=== PATIENT | male | born 1995 | race Caucasian/White ===

== ENCOUNTER 2016-09-06 23:30 | Emergency (ER) | payer SELFPAY ==
[~2016-09-06] VITALS: Ht 170.2 cm; Wt 95.0 kg
[2016-09-07] MEDS ORDERED: SODIUM CHLORIDE 0.9% 1,000ML IVBOLUS ONE
[2016-09-07] MEDS ORDERED: SODIUM CHLORIDE FLUSH 10ML SYR IVF ONE
[2016-09-07] MEDS ORDERED: ONDANSETRON 2MG/ML, 2ML IVPush ONE
[2016-09-07] MEDS ORDERED: ONDANSETRON 2MG/ML, 2ML ONE (00:04)
[2016-09-07 00:19] LABS: HEMOGLOBIN 14.6 g/dL (13.7-18.0)
[2016-09-07 00:28] LABS: BLOOD UREA NITROGEN 12 mg/dL (7-18)
[2016-09-07 00:32] LABS: ASPARTATE AMINO TRANSFERASE 15 U/L (15-37)
[2016-09-07] MEDS ORDERED: POTASSIUM CHLORIDE 20 MEQ TAB.ER.PRT ONE (00:53)
[2016-09-07] MEDS ORDERED: POTASSIUM CHLORIDE 20 MEQ TAB.ER.PRT PO ONE (01:00)
[2016-09-07 03:28] VITALS: BP 102/55
== END 2016-09-07 03:29 | disposition home or self-care (01) ==
LOC: ED 23:59
DX: R11.2 Nausea with vomiting, unspecified (principal); F12.10 Cannabis abuse, uncomplicated; E87.6 Hypokalemia
CPT/HCPCS: 36415; 80053; 85025; 93005; 96361; 96374; 99285; J2405; J7030

== ENCOUNTER 2018-08-26 19:31 | Emergency (ER) | payer SELFPAY ==
[~2018-08-26] VITALS: Ht 172.7 cm; Wt 107.0 kg
[2018-08-26 19:39] VITALS: BP 171/89
[2018-08-26] MEDS ORDERED: DIPHENHYDRAMINE 50 MG/ML, 1ML IM ONE (21:00)
[2018-08-26] MEDS ORDERED: METOCLOPRAMIDE 5 MG/ML, 2ML IM ONE (21:00)
[2018-08-26] MEDS ORDERED: DIPHENHYDRAMINE 50 MG/ML, 1ML ONE (21:23)
[2018-08-26] MEDS ORDERED: METOCLOPRAMIDE 5 MG/ML, 2ML ONE (21:23)
--- NOTE | 2018-08-26 21:27 | NUR ---
PT BACK FRM CT SCAN AND MEDICATED ORDERED
== END 2018-08-26 22:02 | disposition home or self-care (01) ==
LOC: ED 21:56
DX: R51 Headache (principal); Z72.9 Problem related to lifestyle, unspecified
CPT/HCPCS: 70450; 96372; 99284; J1200; J2765

== ENCOUNTER 2019-10-30 20:24 | Emergency (ER) | payer OTHER ==
[~2019-10-30] VITALS: Ht 175.3 cm; Wt 105.0 kg
--- NOTE | 2019-10-30 20:50 | NUR ---
PT RESTING ON GURNEY, MONITORS APPLIED, PROVIDED PT WITH BLANKET, SIDERAILS UP X2, CALL LIGHT WITHIN REACH. AWAITING ERP FOR EVAL AND ORDERS
[2019-10-30] MEDS ORDERED: ONDANSETRON 2MG/ML, 2ML IVPush ONE (21:30)
[2019-10-30] MEDS ORDERED: MORPHINE SULFATE 4 MG/ML, 1ML IVPush PRN (21:30)
--- NOTE | 2019-10-30 21:31 | NUR ---
PT TO ULTRASOUND
[2019-10-30 21:34] LABS: BASOPHILS # (AUTO) 0.07 x10^3/uL (0-0.1); BASOPHILS % (AUTO) 1 % (0-1); EOSINOPHILS # (AUTO) 0.02 x10^3/uL (0-0.4); EOSINOPHILS % (AUTO) 0 % (1-7); LYMPHOCYTES # (AUTO) 1.36 x10^3/uL (1-3.4); LYMPHOCYTES % (AUTO) 9 % (22-44); MD NO; MEAN CORPUSCULAR HGB CONC 33.2 g/dL (33.2-36.2); MEAN CORPUSCULAR VOLUME 87.2 fL (81-97); MONOCYTES # (AUTO) 0.47 x10^3/uL (0.2-0.8); MONOCYTES % (AUTO) 3 % (2-9); NEUTROPHILS # (AUTO) 12.55 x10^3/uL (1.8-6.8); NEUTROPHILS % (AUTO) 87 % (42-75); PLATELET COUNT 229 x10^3/uL (130-400); RED BLOOD COUNT 5.29 x10^6/uL (4.38-5.82); RED CELL DISTRIBUTION WIDTH 12.6 % (9.4-14.8)
[2019-10-30] MEDS ORDERED: ONDANSETRON 2MG/ML, 2ML ONE (21:36)
[2019-10-30] MEDS ORDERED: MORPHINE SULFATE 4 MG/ML, 1ML ONE (21:36)
[2019-10-30 21:42] LABS: ALBUMIN 4.3 g/dL (3.4-5.0); ANION GAP 7 mmol/L (5-15); CALCIUM 9.2 mg/dL (8.5-10.1); CHLORIDE 109 mmol/L (98-107)
--- NOTE | 2019-10-30 21:42 | NUR ---
pt up to rr with steady gait, provided pt with urine cup for sample
[2019-10-30 21:45] LABS: ALANINE AMINOTRANSFERASE 68 U/L (12-78); ALKALINE PHOSPHATASE 108 U/L (45-117); BILIRUBIN,TOTAL 0.8 mg/dL (0.2-1.0); CREATININE 1.06 mg/dL (0.7-1.3)
[2019-10-30 21:50] VITALS: BP 149/66
--- NOTE | 2019-10-30 21:50 | NUR ---
IV SITE STARTED, PT MEDICATED PER AUG. URINE SAMPLE SENT TO LAB
[2019-10-30 22:05] LABS: MICROSCOPIC AUTO
== END 2019-10-30 22:41 | disposition home or self-care (01) ==
LOC: ED 21:43
DX: N20.1 Calculus of ureter (principal); R31.9 Hematuria, unspecified
CPT/HCPCS: 36415; 76770; 80053; 81001; 83690; 85025; 87086; 96374; 96375; 99284; J2270; J2405